=== PATIENT | male | born 1955 | race Caucasian/White ===

== ENCOUNTER → 2019-01-05 | Outpatient (CLI) | payer MEDICARE ==
[~2019-01-05] MED LIST: ASPIRIN CHEWABLE 81 MG TABLET. ONE; IV NORMAL SALINE 1000ML BAG 1,000 ML ONE
--- NOTE | 2019-01-05 13:59 | PCVCIMAG ---
APPROVED REPORT Study performed: 01/05/2019 12:55:30 Exam: Stress Echocardiogram Indication: chest pain, dm, fam hx cad Patient Location: Echo lab Stress Nurse: Ngoc Coughlin RN Status: routine Ht: 5 ft 7 in HR: 98 bpm BP: 112/80 mmHg Rhythm: Tachycardia Procedure The patient underwent an Exercise Stress Test using the Uriel Protocol. Blood pressure, heart rate, and EKG were monitored. An Echocardiogram was performed by analytical technician in four stages in quad fashion. At peak stress, four selected images were obtained and placed side by side with resting images for comparison. Stress Test Details Stress Test: Exercise stress testing was performed using a Uriel protocol. HR Resting HR: 98 bpmMax Heart Rate (APMHR): 155 bpm Max HR Achieved: 164 bpmTarget HR (85% APMHR): 131 bpm % of APMHR: 105 Recovery HR: 114 bpm HR response to stress: Normal HR response to stress BP Resting BP: 112/80 mmHg Max BP: 120/64 mmHg Recovery BP: 80/60 mmHg BP response to stress: Abnormal hypotensive response to stress. ECG Resting ECG: Sinus Tachycardia Stress ECG: Sinus Rhythm ST Change: ischemic ST depression and T wave abnormality Maximum ST Deviation: 4.4 mm Recovery ECG: Sinus Rhythm Recovery ST Change: Ischemic ST depression Clinical Reason for Termination: Chest pain/Anginal equivalent Stress Symptoms: Chest pain-limiting Exercise duration: 3 min 37 sec Highest Stage Achieved: Stage 2: 2.5 mph at 12% grade. Exercise capacity: 6 METs Scale: Active Angina Score: Exercise-Limiting Stress ECG Conclusion [place]arosa Treadmill Score is -27.0 which is High risk. Pre-Stress Echo The resting Echocardiogram showed normal left ventricular contractility with an estimated Ejection Fraction of about >55%. Normal wall motion in all segments on baseline images. Post-Stress Echo The stress Echocardiogram showed abnormal left ventricular contractility with an estimated Ejection Fraction of about 40-45%. Dilated apex, hypokinetic anterior and lateral wall motion. EF is decreased globally. Clinical No clinical or ECG evidence for ischemia. Conclusion Clinical Response: Ischemic- limiting chest pain Exercise Capacity: Below Average Stress ECG Response: Ischemic Stress Echo Images: Ischemic Ischemic stress echocardiographic with regional wall motion abnormalities and ischemic EKG changes. Other Information Study Quality: Adequate Critical Notification Nurse Note- IV #22 g started left hand. IVF NS to gravity for BP 80/60 and CP diaphoresis. ASA 325 mg and Livalo 4 mg given PO priort to transport to [facility]. <Conclusion> Ischemic stress echocardiographic with regional wall motion abnormalities and ischemic EKG changes.
== END | disposition home or self-care (01) ==
LOC: PCVCIMAG 13:07
PROVIDERS: ATTEND Internal Medicine Geriatric Medicine
DX: R07.9 Chest pain, unspecified (principal); E11.9 Type 2 diabetes mellitus without complications; Z82.49 Family history of ischemic heart disease and other diseases of the circulatory system
CPT/HCPCS: 93325; 93351; J7030

== ENCOUNTER → 2019-03-26 | Outpatient (CLI) | payer MEDICARE ==
--- NOTE | 2019-03-26 16:44 | PCVCIMAG ---
APPROVED REPORT Study performed: 03/26/2019 09:44:53 Exam: Stress Echocardiogram Indication: CAD s/p CABG X5, htn, hlp, dm Patient Location: Echo lab Stress Nurse: Ngoc Coughlin RN Status: routine Ht: 5 ft 7 in HR: 86 bpm BP: 116/68 mmHg Rhythm: NSR Procedure The patient underwent an Exercise Stress Test using the Uriel Protocol. Blood pressure, heart rate, and EKG were monitored. An Echocardiogram was performed by aviation safety equipment technician in four stages in quad fashion. At peak stress, four selected images were obtained and placed side by side with resting images for comparison. Stress Test Details Stress Test: Exercise stress testing was performed using a Uriel protocol. HR Resting HR: 86 bpmMax Heart Rate (APMHR): 155 bpm Max HR Achieved: 151 bpmTarget HR (85% APMHR): 131 bpm % of APMHR: 97 Recovery HR: 109 bpm HR response to stress: Normal HR response to stress BP Resting BP: 116/68 mmHg Max BP: 150/70 mmHg Recovery BP: 142/80 mmHg BP response to stress: Normal blood pressure response to stress. ECG Resting ECG: Sinus Rhythm Stress ECG: Sinus Rhythm ST Change: equivocal T wave abnormality Arrhythmia: None Recovery ECG: Sinus Rhythm Recovery ST Change: equivocal T wave abnormality Recovery Arrhythmia: None Clinical Reason for Termination: Maximal effort Stress Symptoms: Leg Fatigue Exercise duration: 6 min 57 sec Highest Stage Achieved: Stage 3: 3.4 mph at 14% grade. Exercise capacity: 9.9 METs Overall Exercise Capacity for Age: Average Scale: Sedentary Angina Score: None Pre-Stress Echo The resting Echocardiogram showed normal left ventricular contractility with an estimated Ejection Fraction of about 50-55%. The resting echocardiogram demonstrated normal wall motion in all wall segments. Post-Stress Echo The stress Echocardiogram showed normal left ventricular contractility with an estimated Ejection Fraction of about 60-65%. Compared to rest, there were no stress-induced wall motion abnormalities. Clinical No clinical or ECG evidence for ischemia. Conclusion Clinical Response: Non-ischemic Exercise Capacity: Average Stress ECG Response: Equivocal Stress Echo Images: Non-ischemic The left ventricle is normal in size and wall thickness in both the rest and stress images. Trace mitral regurgitation and trace tricuspid regurgitation with PAP of 29 mmHg. Normal pulmonic and aortic valve color doppler. No valvular stenosis. Other Information Study Quality: Adequate <Conclusion> The left ventricle is normal in size and wall thickness in both the rest and stress images. Trace mitral regurgitation and trace tricuspid regurgitation with PAP of 29 mmHg. Normal pulmonic and aortic valve color doppler. No valvular stenosis.
== END | disposition home or self-care (01) ==
LOC: PCVCIMAG 09:46
PROVIDERS: ATTEND Internal Medicine Cardiovascular Disease
DX: I25.10 Atherosclerotic heart disease of native coronary artery without angina pectoris (principal); I10 Essential (primary) hypertension; E11.9 Type 2 diabetes mellitus without complications; Z95.1 Presence of aortocoronary bypass graft
CPT/HCPCS: 93325; 93351